=== PATIENT | female | born 1955 | race Caucasian/White ===

== ENCOUNTER 2025-04-25 23:48 | Inpatient (IN) | payer MEDICARE, OTHER, SELFPAY ==
[2025-04-25 20:30] VITALS: BP 111/61
[2025-04-25 21:04] LABS: Hematocrit 33.1 % (37.0-47.0); Hemoglobin 10.5 g/dL (12.0-16.0); Mean Corp Hgb Conc. 31.7 g/dL (33.0-37.0); Mean Corpuscular Volume 94.3 fL (81.0-99.0); Nucleated Red Blood Cells % 0 %; Platelet Count 461 10^3/uL (130-400); Red Cell Dist. Width 16.1 % (11.5-14.5)
[2025-04-25 21:14] LABS: ALT (SGPT) < 10 U/L (0-35); AST (SGOT) 19 U/L (14-36); Albumin 4.3 g/dl (3.5-5.0); Alkaline Phosphatase 72 U/L (38-126); Blood Urea Nitrogen 5 mg/dl (7-17); Calcium 9.7 mg/dl (8.4-10.2); Carbon Dioxide 28 mmol/L (22-30); Chloride 99 mmol/L (98-107); Glucose 111 mg/dl (70-99); Lipase 39 U/L (23-300); Potassium 4.3 mmol/L (3.5-5.1); Sodium 133 mmol/L (135-145); Total Protein 7.1 g/dl (6.3-8.2); eGFR > 60.00
[2025-04-25 21:38] VITALS: BMI 20.5
--- NOTE | 2025-04-25 21:42 | EDRN ---
Pt complains of sever pain in lower abdomen that starts with gas pain 'like something is eating me from the inside out.' Pt says she cannot lay down because that increases the pain. Pt started feeling better after percocet earlier today however
when that ran out, pain returned and pt noted temp of 102.6 at home. No medication taken for fever. Pt says diverticulitis pain is always present. Pt was in [facility] 03/29 and 04/06 or . Pt says she usually gets abx and follow up with
family doctor. April, pt was kept overnight and developed GI bleeding for a day. Pt had an angiogram done and says doctor could not find bleeding. No n/v/d. Pt has chronic constipation. Pain woke pt at 0300 this morning which is when she
takes linzess - pt did not take it this morning because she felt it would make her sicker. No BM today. No cough. Pt had intermittent chills normally, worse when pain increases. Pt getting intermittent shooting pains through abdomen at this
time. No urinary symptoms.
--- NOTE | 2025-04-25 21:43 | ED.GENMED ---
History of Present Illness
General
Chief Complaint: Abdominal Pain
Time Seen by Provider: 04/25/25 20:51
History of Present Illness
History of Present Illness:
69-year-old female with history of recurrent diverticulitis presents to the emergency department for evaluation of lower abdominal pain and fever that began today. She reports that she was admitted to [facility] earlier this month because of
acute diverticulitis with an associated GI bleed. She apparently underwent angiography and was then taken for an interventional radiology procedure however the procedure was terminated as no bleeding source was found according to the patient. She
was treated with a course of Cipro and Augmentin which she completed 9 days ago. Pain acutely began today, she denies nausea or vomiting, denies rectal bleeding
Review of Systems
Review of Systems
Allergies reviewed?: Yes
All Other Systems: ROS reviewed and negative except as documented in HPI and ROS
Phy Exam
Physical Exam
Physical Exam:
GEN: Well appearing, NAD, WDWN
HEENT: Oral mucosa moist, no scleral icterus
Cardiac: Regular rate and rhythm, no murmur
Lung: No respiratory distress, no tachypnea
Abdomen: Soft, diffuse tenderness to the lower abdomen with no rigidity, no upper abdominal tenderness
MSK: No gross deformity or injuries
Skin: Good color, no pallor or jaundice, no rashes
Neuro: AO x3, moves all extremities freely
Psych: Calm, cooperative
Course
Orders/Labs/Results
Orders:
Orders
04/25/25 20:43
Complete Blood Count/With Diff Urgent
Comprehensive Metabolic Panel Urgent
Lipase Urgent
04/25/25 21:16
CT Abd/Pel (IV only)-DH only Urgent
Comment:
Reason For Exam: LLQ pain
04/25/25 23:22
Piperacillin/Tazo 3.375 Gram [Zosyn] 3.375 gram in 50 ml IV NOW
04/25/25 23:48
Admit/Transfer Patient As Directed
Co-Sign Provider:
Level of Care: Inpatient admission
Assign to:: Medical/Surgical
Physician / Group: Guillermina
Diagnosis: Acute diverticulitis
Reason for Hospitalization: Recurrent acute diverticulitis
Expected length of stay greater than two midnights?: Yes
ELOS- Estimated Length of Stay in days: 2
I certify the patient meets the requirements for IP care: Yes
04/25/25 23:49
Code Status As Directed
Resuscitation Status: Full Code
PRN Pain Medication Management As Directed
May give lesser potent ordered pain med per pt: Yes
preference::
Protocol:: Medication orders for pain may be administered in a
manner that supports deferring to patient preference
when the pt is:
- Requesting an ordered lesser potent pain medication.
Least to most potent pain medications are defined
as: acetaminophen < NSAID < tramadol < opioids
(morphine, oxycodone, hydromorphone).
- Requesting a lesser dose of the same medication IF
ORDERED.
- Requesting a less intrusive route of administration
if both routes are prescribed by the provider (PO <
IV).
Abnormal Lab Results
04/25/25
20:43
RBC 3.51 L 10^6/uL
(4.20-5.40)
Hgb 10.5 L g/dL
(12.0-16.0)
Hct 33.1 L %
(37.0-47.0)
MCHC 31.7 L g/dL
(33.0-37.0)
RDW 16.1 H %
(11.5-14.5)
Plt Count 461 H 10^3/uL
(130-400)
Absolute Neuts (auto) 6.9 H 10^3/uL
(1.4-6.5)
Absolute Monos (auto) 1.3 H 10^3/uL
(0.1-0.6)
Monocytes % 12.2 H %
(1.7-9.3)
Sodium 133 L mmol/L
(135-145)
BUN 5 L mg/dl
(7-17)
Glucose 111 H mg/dl
(70-99)
04/25/25 20:43
04/25/25 20:43
Vital Signs
Initial and Last Documented VS:
Initial Vital Signs
Temp Pulse Resp BP Pulse Ox
98.6 F 104 20 111/61 97
04/25/25 20:30 04/25/25 20:30 04/25/25 20:30 04/25/25 20:30 04/25/25 20:30
Last Documented Vital Signs
Temp Pulse Resp BP Pulse Ox
98.2 F 75 14 98/64 95
04/25/25 21:57 04/25/25 21:57 04/25/25 21:57 04/25/25 21:57 04/25/25 21:57
MDM/Problems Addressed
MDM/Problems Addressed:
Due to the patient's recent hospitalization and antibiotic course she is at higher risk of multidrug-resistant pathogen, given her frequent recurrence of diverticulitis we will admit to the hospitalist service for IV antibiotics
*Pulse Oximetry
SaO2: 97
Oxygen Mode of Delivery: Room air
Patient hypoxic: no
*Critical Care Note
Total Time (30-74mins, 75-104mins- exclusive of procedures): Not Applicable
ED Attending Note
-
Portions of this chart may have been created with voice recognition software.� Occasional wrong word or��sound alike� substitutions may have occurred due to the inherent limitations of voice recognition software.
Discharge Plan
Departure
Patient Disposition: Admit
Date of Disposition: 04/25/25
Time of Disposition: 23:25
Admit to: Med/Surg
Presentation/result/management discussed w/ accepting MD/DO: Hospitalist
Discharge Problem:
Acute diverticulitis
Prescriptions:
No Action
polyethylene glycol 3350 [Miralax] 17 gram Powder In Packet
17 g PO DAILY PRN (Reason: if linzess does not work)
alprazolam 0.25 mg Tablet
0.25 mg PO BID
oxycodone-acetaminophen [Percocet] 10-325 mg Tablet
1 tab PO Q4H PRN (Reason: back pain)
acyclovir [Zovirax] 200 mg Capsule
200 mg PO BID
cholecalciferol (vitamin D3) [Vitamin D3] 50 mcg (2,000 unit) Capsule
50 mcg PO DAILY
Linzess 290 mcg Capsule
290 mcg PO DAILY
Referrals:
UNKNOWN - PT DOES,NOT KNOW [Family Provider]
Interventions
Interventions:
*Risk Screen - Suicide Last Done: 04/25/25 20:30
*General Assessment Last Done: 04/25/25 20:30
*Neglect/Abuse Screening Last Done: 04/25/25 20:30
*ED- Fall Risk Assessment Last Done: 04/25/25 21:53
*ED COVID-19 Vaccine History Last Done: 04/25/25 21:38
*ED Influenza Vaccine History Last Done: 04/25/25 21:38
GU-Qfdyrp-[id number] Assessment Last Done: 04/25/25 22:02
Discharge Date and Time
Print Language: FRENCH
[2025-04-25 21:57] VITALS: BP 98/64
[2025-04-25] MEDS: ZOSYN 50 IV (23:27)
--- NOTE | 2025-04-25 23:27 | HPS.HSE ---
Family Physician
-
Family Physician: NOT KNOW UNKNOWN - PT DOES
Chief Complaint
-
Abdominal pain
History of Present Illness
This is a 69-year-old female with past medical history significant for diverticulitis that presents to the emergency department with abdominal pain.
Patient reports history of diverticulitis that started around 2018. She had a sigmoid diverticulitis at that time and was treated with antibiotics. She was recommended surgery but patient reported that she did not want to undergo this procedure
given this is was forced to event. She was asymptomatic up until October of this year when she started having pain again and was found to have diverticulitis. Patient reports that she has been having diverticulitis off and on since then. The
diverticulitis was treated with antibiotics and she gets resolved and urinary tract infections, treated with antibiotics only to get recurrent diverticulitis again. She has never had abscess or perforation. She reported that she last was
hospitalized for diverticulitis in April which will be at 4th event since October. She was on Zosyn for about 5 days and completed outpatient course of Augmentin plus ciprofloxacin on April 16. Course was complicated by GI hemorrhage. Patient
says symptoms never completely resolved but she was tolerating the discomfort. She states that she has had decreased appetite and poor p.o. intake and intermittent constipation. However over the last few days she has had more severe Abdominal pain
not relieved by oral Percocets at home. She has not had any fevers or chills. She denies vomiting.
In the emergency department she was afebrile, blood pressure was 98/60 with a pulse of 75 and she was satting 95% on room air. Had a white count of 10.8, hemoglobin 10.5 and plate count of 460. Sodium was 183 electrolytes otherwise unremarkable
with normal BUN and creatinine. LFTs were normal lipase was normal. A CT of the abdomen pelvis showing acute sigmoid reticulitis without free air, or abscess. Distended gallbladder noted but no gallbladder wall thickening or pericholecystic fluid
and no sonographic Walden sign.
Medical History
Past Medical History
Past Medical History: Reports Other (Recurrent diverticulitis)
Past Surgical History: Reports Tonsilectomy and Other (Hemorrhoidectomy, splenectomy)
Social History
Tobacco: Non-smoker
Alcohol: None
Drug: None
Personal:
Living: With Family
Family History
Family History: Not pertinent
Allergies / Home Medications
Allergies reflects when Allergies were last updated in [facility].
Home Medications with original date entered in [facility]
Allergy/Medication List:
Allergies
Allergy/AdvReac Type Severity Reaction Status Date / Time
codeine Allergy Itching Verified 04/25/25 20:28
duloxetine Allergy Hives Verified 04/25/25 20:28
gabapentin Allergy Nausea Verified 04/25/25 20:28
omeprazole Allergy Unknown Verified 04/25/25 20:28
phenazopyridine Allergy Unknown Verified 04/25/25 20:28
Sulfa (Sulfonamide Allergy Nausea Verified 04/25/25 20:28
Antibiotics)
tramadol Allergy Unknown Verified 04/25/25 20:28
Home Medications
acyclovir 200 mg capsule 200 mg PO BID 04/25/25
alprazolam 0.25 mg tablet 0.25 mg PO BID 04/25/25
cholecalciferol (vitamin D3) 50 mcg (2,000 unit) capsule (Vitamin D3) 50 mcg PO DAILY 04/25/25
linaclotide 290 mcg capsule (Linzess) 290 mcg PO DAILY 04/25/25
oxycodone-acetaminophen 10 mg-325 mg tablet (Percocet) 1 tab PO Q4H PRN back pain 04/25/25
polyethylene glycol 3350 17 gram oral powder packet (Miralax) 17 g PO DAILY PRN if linzess does not work 04/25/25
Review of Systems
-
Constitutional: Reports No Symptoms
EENT: Reports No Symptoms
Respiratory: Reports No Symptoms
Cardiac: Reports No Symptoms
Abdomen/GI: Reports Abdominal Pain and Constipated
: Reports No Symptoms
Musculoskeletal: Reports No Symptoms
Skin: Reports No Symptoms
Neurological: Reports No Symptoms
Endocrine: Reports No Symptoms
Hematologic/Lymphatic: Reports No Symptoms
Psych: Reports No Symptoms
Physical Exam
Vital Signs
Vital Signs
Temp Pulse Resp BP Pulse Ox
98.2 F 75 14 98/64 95
04/25/25 21:57 04/25/25 21:57 04/25/25 21:57 04/25/25 21:57 04/25/25 21:57
Physical Exam
General: Well Developed, Well Nourished and No Apparent Distress
HEENT: NormoCephalic, Moist mucous membranes and Atraumatic
Respiratory: Clear
Cardiac: S1/S2 and Regular Rhythm; No Murmur or Rub
GI: Soft, Non Tender, Non Distended and Normal Bowel Sounds; No Organomegaly
Rectal: Deferred by Provider
Musculoskeletal: No Clubbing, No Cyanosis and No Edema
Skin: No Rash
Neuro: AO x 3 and Nonfocal/grossly intact
Laboratory Results
-
04/25/25 20:43
04/25/25 20:43
Laboratory Results
Total Bilirubin 0.7 mg/dl (0.2-1.3) 04/25/25 20:43
AST 19 U/L (14-36) 04/25/25 20:43
ALT < 10 U/L (0-35) 04/25/25 20:43
Alkaline Phosphatase 72 U/L (38-126) 04/25/25 20:43
Lipase 39 U/L (23-300) 04/25/25 20:43
Data Reviewed
-
CT Scan: Report Reviewed by me
Lab Data: Labs Reviewed by me
Old Records: Reviewed
Impression/Plan
-
IMPRESSION:
Patient is a 69-year-old female with past medical history of recurrent diverticulitis, she has been having persistent diverticulitis and on and off antibiotics since October of this year with 4 clear intervals requiring IV antibiotics since who presents
to the emergency department with worsening abdominal pain and constipation found to have acute diverticulitis. She is nontoxic-appearing. She is hemodynamically stable. There is no perforation or abscess on the CT scan. She last completed a
course of antibiotics in early April for sigmoid diverticulitis when she was admitted at [facility]. She was on Zosyn and was discharged on Augmentin plus Cipro.
PLAN:
Acute diverticulitis -multiple recurrences of acute diverticulitis, no perforation or abscess at this time.
- Admit to MedSurg
�Clear liquid diet for now
� Started on Zosyn
� Request records from [facility]
� Pain control, antiemetics and IV fluids
� At this point patient may have candidate for surgery and has been referred to Dr. Cheema in the past, consider colorectal consult in a.m. but no urgent consult at this time.
DVT prophylaxis�Lovenox subcu
CODE STATUS�full code
[2025-04-25 23:58] VITALS: BP 100/62
--- NOTE | 2025-04-26 00:51 | PTCARENOTE ---
Patient arrived to [facility] from ED. AAOx3, walked into room by herself, oriented to surroundings. Pt states no needs at this time, no c/o pain. Plan of care explained; assessment on going.
[2025-04-26 00:58] VITALS: BP 99/66; BMI 20.1
[2025-04-26] MEDS: LR 1000 IV ×2 (01:05→12:22)
[2025-04-26] MEDS: DILAUDID 0.5 MG IV ×2 (04:17→08:20)
[2025-04-26] MEDS: ZOSYN 50 IV ×4 (05:19→23:51)
[2025-04-26 06:13] LABS: Hematocrit 31.1 % (37.0-47.0); Hemoglobin 10.2 g/dL (12.0-16.0); Mean Corp Hgb Conc. 32.8 g/dL (33.0-37.0); Mean Corpuscular Volume 95.4 fL (81.0-99.0); Platelet Count 413 10^3/uL (130-400); Red Cell Dist. Width 16.0 % (11.5-14.5)
[2025-04-26 06:34] LABS: Blood Urea Nitrogen 5 mg/dl (7-17); Calcium 9.4 mg/dl (8.4-10.2); Carbon Dioxide 29 mmol/L (22-30); Chloride 103 mmol/L (98-107); Estimated Creatinine Clearance 62 ml/min; Glucose 96 mg/dl (70-99); Magnesium 2.0 mg/dl (1.6-2.3); Potassium 4.0 mmol/L (3.5-5.1); Sodium 134 mmol/L (135-145); eGFR > 60.00
[2025-04-26 07:05] VITALS: BP 109/60
[2025-04-26] MEDS: ZOVIRAX 200 MG PO ×2 (08:20→19:34)
[2025-04-26] MEDS: XANAX 0.25 MG PO ×2 (08:20→19:34)
--- NOTE | 2025-04-26 09:08 | CM ---
CM reviewed chart. Pt Iw/AMB and ADL's ambulating in room. AAOX4. Anticipated for home with no needs.
CM/SW will continue to follow to ensure a safe and timely dc.
--- NOTE | 2025-04-26 11:48 | W.PN.HOSP.TC ---
Today's Communication/Plan
-
maintain on abx
pain meds adjusted
await CRS evaluation
Assessment / Plan
Assessment / Plan
CT a/p
1. Findings consistent with acute sigmoid diverticulitis. No abscess or extraluminal air.
2. 8 mm stone within the right renal collecting system, without hydronephrosis.
3. 3 mm nodule at the right lung base. As per Fleischner Society recommendations, no further CT follow-up is required unless the patient is high risk for lung carcinoma, in which case a follow-up chest CT should be considered in approximately 12
months.
1. Recurrent sigmoid diverticulitis
- Patient reportedly have 4-5 episodes of recurrent diverticulitis in the last few months
- CT abdomen pelvis report as above
- Patient started on IV Zosyn
- Maintain on clear liquid diet
- Pain medication adjusted with increasing oral pain medication, IV Dilaudid for breakthrough pain
- Colorectal surgeon has been consulted for further help
2. Anemia -of unknown Verity
- Normocytic anemia with hemoglobin of 10, no baseline to compare with
- No reported black stools, monitor hemoglobin
- Follows with GI
3. History of constipation
- On Linzess, follows up with GI
4. Generalized anxiety disorder
- Maintained on Xanax 0.25 mg twice daily per home regimen
5. Hyponatremia
-Minimal monitor
Full code
Anticipated Discharge: 24 - 48 hours
Subjective/Interval History
-
Date of Service: April 26, 2025
Patient is tearful from the pain in her abdomen
Afebrile
No reported nausea or vomiting
Objective Data
-
Labs:
Laboratory Results
04/26/25
05:29
WBC 9.2
Hgb 10.2 L
Hct 31.1 L
Plt Count 413 H
Sodium 134 L
Potassium 4.0
Chloride 103
Carbon Dioxide 29
BUN 5 L
Creatinine 0.7
Glucose 96
Calcium 9.4
Vital Signs:
Vital Signs
Temp Pulse Resp BP Pulse Ox
98.3 F 92 16 109/60 96
04/26/25 07:05 04/26/25 07:05 04/26/25 07:05 04/26/25 07:05 04/26/25 07:05
Review of Systems
-
Respiratory: Reports No Symptoms
Cardiac: Reports No Symptoms
Abdomen/GI: Reports Abdominal Pain; Denies Nausea or Vomiting
Physical Exam
-
General: Negative Comfortable or Obese
HEENT: Negative Oxygen
GI: Soft, Normal Bowel Sounds and Tender (Lower quadrants); Negative Distended
[2025-04-26] MEDS: ROXICODONE 10 MG PO ×2 (12:22→17:34)
--- NOTE | 2025-04-26 13:39 | CON.CRS ---
Consultation
-
Date/Time Consultation Requested: 04/26/2025, 8:11
Date/Time Consultation Performed: 04/26/2025, 11:00
Requesting Provider: Toma Velásquez MD
Performing Provider: Adam Jernigan MD
Reason for Consultation: diverticulitis
Medical History
-
Chief Complaint: abdominal pain
History of Present Illness:
69yo female, with a history of diverticulitis, presents to [facility] complaining of abdominal pain. She had a history of sigmoid diverticulitis back in 2018 and was treated with outpatient antibiotics. At that time it was recommended she
undergo surgery but she declined. She did not have another attack up until October 2024 in which she with outpatient antibiotics. She was then hospitalized for diverticulitis on April 07 at [facility]. She was on Zosyn inpatient for 5 days.
She had a significant amount of rectal bleeding and was found to have an active hemorrhage around her splenic flexure. However, IR was not able to embolize the area. She received several blood transfusions. Her last colonoscopy was in 2017 by
[facility] and there were no findings. She was due in 2022. She states the pain in her abdomen is 'always there' and all of a sudden it will 'blow up'. She denies any nausea or vomiting. She denies currently any bloody stools. She does have
urinary pain when she urinates. Denies air in the urine or any brown flecks in the urine. Her mother of colon cancer. CT of the abdomen and pelvis shows acute sigmoid diverticulitis without free air or abscess. Her current white count is
9.2 and was 10.8 on admission. She remains afebrile. She was started on IV Zosyn in the ER.
Past Medical History
Past Medical History: Other (recurrent diverticulitis (4th attack))
Past Surgical History: Other (Hemorrhoidectomy, splenectomy)
Social History
Tobacco: Non-Smoker
Alcohol: None
Drug: None
Family History
Family History: Cancer (mother colon cancer)
Allergies / Home Medications
Allergy/AdvReac Type Severity Reaction Status Date / Time
codeine Allergy Itching Verified 04/25/25 20:28
duloxetine Allergy Hives Verified 04/25/25 20:28
gabapentin Allergy Nausea Verified 04/25/25 20:28
omeprazole Allergy Unknown Verified 04/25/25 20:28
phenazopyridine Allergy Unknown Verified 04/25/25 20:28
Sulfa (Sulfonamide Allergy Nausea Verified 04/25/25 20:28
Antibiotics)
tramadol Allergy Unknown Verified 04/25/25 20:28
�Medication �Instructions �Recorded �Confirmed �Type
acyclovir 200 mg capsule 200 mg PO BID belt shingles ppx 04/25/25 04/25/25 History
alprazolam 0.25 mg tablet 0.25 mg PO BID Mental 04/25/25 04/25/25 History
Health/Anxiety
cholecalciferol (vitamin D3) 50 50 mcg PO DAILY Supplement 04/25/25 04/25/25 History
mcg (2,000 unit) capsule (Vitamin
D3)
linaclotide 290 mcg capsule 290 mcg PO DAILY Gastrointestinal 04/25/25 04/25/25 History
(Linzess) Issue
oxycodone-acetaminophen 10 mg-325 1 tab PO Q4H PRN back pain 04/25/25 04/25/25 History
mg tablet (Percocet)
polyethylene glycol 3350 17 gram 17 g PO DAILY PRN if linzess does 04/25/25 04/25/25 History
oral powder packet (Miralax) not work
Review of Systems
-
History Source: Patient
Abdomen/GI: Abdominal Pain
A 10 point review of systems was completed, and was negative except as per HPI.
Physical Exam
Vital Signs
Temp 98.3 F 04/26/25 07:05
Pulse 92 04/26/25 07:05
Resp Rate 16 04/26/25 07:05
Blood pressure 109/60 04/26/25 07:05
SaO2 96 04/26/25 07:05
04/25/25 04/26/25 04/27/25
06:59 06:59 06:59
Actual Weight 51.437 kg
Body Mass Index (BMI) 20.1
Lab Results / Allergies
04/26/25 05:29
04/26/25 05:29
WBC 9.2 10^3/uL (4.8-10.8) 04/26/25 05:29
Hgb 10.2 g/dL (12.0-16.0) L 04/26/25 05:29
Hct 31.1 % (37.0-47.0) L 04/26/25 05:29
Plt Count 413 10^3/uL (130-400) H 04/26/25 05:29
Abs Immat Gran (auto) 0.0 10^3/uL (0-0.05) 04/25/25 20:43
Neutrophils % 63.7 % (42.2-75.2) 04/25/25 20:43
Allergy/AdvReac Type Severity Reaction Status Date / Time
codeine Allergy Itching Verified 04/25/25 20:28
duloxetine Allergy Hives Verified 04/25/25 20:28
gabapentin Allergy Nausea Verified 04/25/25 20:28
omeprazole Allergy Unknown Verified 04/25/25 20:28
phenazopyridine Allergy Unknown Verified 04/25/25 20:28
Sulfa (Sulfonamide Allergy Nausea Verified 04/25/25 20:28
Antibiotics)
tramadol Allergy Unknown Verified 04/25/25 20:28
Physical Exam
General: Well Developed, Well Nourished and No Apparent Distress
GI: Soft, Non Distended and Tender (mild RLQ, moderate in LLQ, mild bloating)
Skin: Warm and Dry
Neuro: AO x 3
Psych: Calm
Data Reviewed
-
CT Scan: Image Personally Visualized and interpreted, Report Reviewed by me and Discussed with Patient
Labs: Labs Reviewed by me, Discussed with Physician and Discussed with Patient
Old Records: Reviewed
Assessment / Plan
-
Assessment: 69-year-old female with multiple attacks of diverticulitis found to have likely smoldering sigmoid diverticulitis
Plan:
- No plans for surgery at this time unless she would worsens. Surgery would involve an open colectomy with colostomy.
- Continue IV fluids and clear liquids.
- Recommend ID consult due to smoldering diverticulitis. May require a PICC line and IV antibiotics as an outpatient.
- Will need eventual colonoscopy.
- Continue IV antibiotics
- Hopefully we can get her through this admission with IV antibiotics. Will plan to do an elective colectomy in the future.
[2025-04-26 15:00] VITALS: BP 100/59
[2025-04-26] MEDS: LOVENOX 40 MG SC (17:34)
--- NOTE | 2025-04-26 19:15 | PTCARENOTE ---
On rounds, patient noted to have full bag of Zosyn still hanging from previous shift not administered. Pharmacy notified.
[2025-04-26 19:47] LABS: C-Reactive Protein 22.20 mg/L (0.0-10.00)
[2025-04-26 23:00] VITALS: BP 99/51
[2025-04-27] MEDS: LR 1000 IV (02:25)
[2025-04-27] MEDS: ZOSYN 50 IV ×4 (05:25→23:05)
[2025-04-27 06:59] LABS: Hematocrit 31.2 % (37.0-47.0); Hemoglobin 10.2 g/dL (12.0-16.0); Mean Corp Hgb Conc. 32.7 g/dL (33.0-37.0); Mean Corpuscular Volume 95.7 fL (81.0-99.0); Platelet Count 406 10^3/uL (130-400); Red Cell Dist. Width 15.8 % (11.5-14.5)
[2025-04-27 07:00] VITALS: BP 107/62
[2025-04-27 07:28] LABS: Blood Urea Nitrogen 7 mg/dl (7-17); Calcium 9.5 mg/dl (8.4-10.2); Carbon Dioxide 26 mmol/L (22-30); Chloride 102 mmol/L (98-107); Estimated Creatinine Clearance 73 ml/min; Glucose 92 mg/dl (70-99); Potassium 3.8 mmol/L (3.5-5.1); Sodium 135 mmol/L (135-145); eGFR > 60.00
[2025-04-27 07:35] LABS: C-Reactive Protein 24.80 mg/L (0.0-10.00)
[2025-04-27] MEDS: XANAX 0.25 MG PO ×2 (08:22→19:44)
[2025-04-27] MEDS: ZOVIRAX 200 MG PO ×2 (08:22→19:44)
--- NOTE | 2025-04-27 10:02 | W.PN.CRS1 ---
Today's Communication / Plan
-
continue IVFS/clear liquids today
ID input
Assessment/Plan
-
Assessment: 69-year-old female with multiple attacks of diverticulitis found to have likely smoldering sigmoid diverticulitis
Vitals: normal
WBC: 6.0, Hgb 10.2
Plan:
- No plans for surgery at this time unless she would worsens. Surgery would involve an open colectomy with colostomy.
- Continue IV fluids and clear liquids today.
- Recommend ID consult due to smoldering diverticulitis. May require a PICC line and IV antibiotics as an outpatient.
- Will need eventual colonoscopy.
- Continue IV antibiotics
- Hopefully we can get her through this admission with IV antibiotics. Will plan to do an elective colectomy in the future.
- Lovenox for DVT prophylaxis
- Appreciate hospitalist
Subjective Data
Subjective Data
Date of Service: April 27, 2025
Patient states she has flatus and bowel movements. Her pain is about a 7/10. She is very hungry.
Objective Data
-
Vital Signs
Temp Pulse Resp BP Pulse Ox
98.4 F 75 16 107/62 96
04/27/25 07:00 04/27/25 07:00 04/27/25 07:00 04/27/25 07:00 04/27/25 07:00
Intake & Output
04/26/25 04/27/25 04/28/25
06:59 06:59 06:59
Intake Total 1350 / 1350
Balance 1350 / 1350
Intake:
Oral fluids 480 / 480
IV fluids (Total) 770 / 770
IV piggybacks 100 / 100
Other:
Number of approximated MODERATE 1
amounts of urine
Lab Results
04/27/25 06:45
04/27/25 06:45
Physical Exam
-
General: No Acute Distress and AOx3
Abdomen: Soft, Non Distended and Tender (LLQ)
Skin: Warm and Dry
--- NOTE | 2025-04-27 11:14 | CON.ID ---
Consultation
-
Date/Time Consultation Requested: April 26, 2025
Date/Time Consultation Performed: April 27, 2025
Requesting Provider: Dr. Patrick Acevedo
Performing Provider: Dr. Bell Pereira
Reason for Consultation: Diverticulitis
Chief Complaint / Past History
Chief Complaint
Abdominal pain
History of Present Illness
69-year-old female with history of splenectomy, diverticulitis who presented to the hospital April 25 with fourth episode of tach reticulitis since October 2024. She reports her first episode was in 2018 treated with antibiotic for which she could
not remember. She was fine until October 2024 when she had 2 episodes of diverticulitis for which she presented to [facility]. Initially diverticulitis in the sigmoid then the second 1 was on the right colon. March 30 she was hospitalized at [facility] again with diverticulitis. She did not develop bright red blood per rectum and has CT angiogram, no colonoscopy. Infectious disease put her on Cipro and Augmentin for which she completed on the . She reports symptom resolution while
on oral antibiotics. She was not able to tolerate metronidazole. On April 25 she again developed left lower quadrant abdominal pain that was severe. No diarrhea. No fevers or chills. In ED CAT scan showed sigmoid diverticulitis without
abscess or perforation. She is currently on Zosyn. She reports the abdominal pain has improved. She reports she could not tolerate metronidazole.
Past History
Additional Past Medical History:
Recurrent diverticulitis
Splenectomy due to trauma ()
IBS
Nephrolithiasis
Chronic back pain
Henorrhoidectomy
Allergy History:
codeine Allergy (Verified 04/25/25 20:28)
Itching
duloxetine Allergy (Verified 04/25/25 20:28)
Hives
gabapentin Allergy (Verified 04/25/25 20:28)
Nausea
omeprazole Allergy (Verified 04/25/25 20:28)
Unknown
phenazopyridine Allergy (Verified 04/25/25 20:28)
Unknown
Sulfa (Sulfonamide Antibiotics) Allergy (Verified 04/25/25 20:28)
Nausea
tramadol Allergy (Verified 04/25/25 20:28)
Unknown
Medications Reviewed: Yes
Current Antibiotics:
Zosyn
Social History
Tobacco: Non-Smoker
Alcohol: None
Drug: None
Personal:
Family History
Family History: Not Pertinent
Review of Systems
Review of Systems
General: Change in Appetite; Negative Fever or Chills
HEENT: Negative Sinus Problems or Headache
Cardiovascular: Negative Chest Pain or Dyspnea
Respiratory: Negative Dyspnea
Gasteroenterology: Negative Nausea, Vomiting or Diarrhea
Genital / Urological: Negative Dysuria or Flank Pain
Endocrine: Weakness
All systems: All other systems were reviewed and were negative
Vital Signs
Temp Pulse Resp BP Pulse Ox
98.4 F 75 16 107/62 96
04/27/25 07:00 04/27/25 07:00 04/27/25 07:00 04/27/25 07:00 04/27/25 07:00
Physical Exam
Physical Exam
Constitutional: No Acute Distress and Comfortable
Eyes: No Conjunctival Hemorrhage and Sclera Anicteric
Cardiovascular: Regular Rate and S1/S2
Pulmonary: Clear
Gastrointestinal: Soft, Tender (mild tender LLQ) and Non Distended
Extremities: Negative Edema
Neurological: AO x 3
Lab / Diagnostic Study Results
04/27/25 06:45
04/27/25 06:45
Abs Immat Gran (auto) 0.0 10^3/uL (0-0.05) 04/25/25 20:43
Absolute Neuts (auto) 6.9 10^3/uL (1.4-6.5) H 04/25/25 20:43
Absolute Lymphs (auto) 2.4 10^3/uL (1.2-3.4) 04/25/25 20:43
Absolute Monos (auto) 1.3 10^3/uL (0.1-0.6) H 04/25/25 20:43
Absolute Basos (auto) 0.1 10^3/uL (0-0.2) 04/25/25 20:43
Immature Gran % 0.4 % (0-0.5) 04/25/25 20:43
Neutrophils % 63.7 % (42.2-75.2) 04/25/25 20:43
Lymphocytes % 22.1 % (20.5-51.1) 04/25/25 20:43
Monocytes % 12.2 % (1.7-9.3) H 04/25/25 20:43
Eosinophils % 1.1 % (0-6) 04/25/25 20:43
Basophils % 0.5 % (0-2) 04/25/25 20:43
C-Reactive Protein 24.80 mg/L (0.0-10.00) H 04/27/25 06:45
Microbiology Results
04/25/25 CT a/p: Findings consistent with acute sigmoid diverticulitis. No abscess or extraluminal air
Assessment / Plan
# Recurrent diverticulitis without abscess
# Intolerance to sulfa, metronidazole
- Improving on Zosyn
- At time of dc, recommend moxifloxacin 400mg po qd x 3 weeks then amanda with Augmentin 875mg po bid as bridge to surgery.
Discussed potential side effects of termite treater abx.
--- NOTE | 2025-04-27 13:48 | CM ---
Diverticulitis. No plans for surgery (open colectomy with colostomy) at this time unless condition worsens. Start clear liquid diet. IV/Zosyn. May need IV/AB at discharge. Discharge POC: Possible need for IV/AB.
--- NOTE | 2025-04-27 14:20 | W.PN.HOSP.TC ---
Today's Communication/Plan
-
maintain on abx
await ID input
continue other care
Assessment / Plan
Assessment / Plan
CT a/p
1. Findings consistent with acute sigmoid diverticulitis. No abscess or extraluminal air.
2. 8 mm stone within the right renal collecting system, without hydronephrosis.
3. 3 mm nodule at the right lung base. As per Fleischner Society recommendations, no further CT follow-up is required unless the patient is high risk for lung carcinoma, in which case a follow-up chest CT should be considered in approximately 12
months.
1. Recurrent sigmoid diverticulitis
- Patient reportedly have 4-5 episodes of recurrent diverticulitis in the last few months
- CT abdomen pelvis report as above
- Patient is maintained on IV Zosyn -ID involved in care for possible need of long-term IV antibiotic for bridging patient back to termite helper surgery.
- Maintain on clear liquid diet
- Continue current pain medication
- Colorectal surgery evaluation reviewed, patient would benefit with an outpatient elective surgery after improvement of current diverticulitis flareup
2. Anemia -of unknown Verity
- Normocytic anemia with hemoglobin of 10, no baseline to compare with
- No reported black stools, monitor hemoglobin
- Follows with GI
3. History of constipation
- On Linzess, follows up with GI
4. Generalized anxiety disorder
- Maintained on Xanax 0.25 mg twice daily per home regimen
5. Hyponatremia
-Minimal monitor
Full code
Discussed with Colorectal Surgeon.
Anticipated Discharge: 24 - 48 hours
Subjective/Interval History
-
Date of Service: April 27, 2025
No new issues overnight
Abdominal pain is better
Denies any nausea vomit
Objective Data
-
Labs:
Laboratory Results
04/27/25
06:45
WBC 6.0
Hgb 10.2 L
Hct 31.2 L
Plt Count 406 H
Sodium 135
Potassium 3.8
Chloride 102
Carbon Dioxide 26
BUN 7
Creatinine 0.6
Glucose 92
Calcium 9.5
Vital Signs:
Vital Signs
Temp Pulse Resp BP Pulse Ox
98.4 F 75 16 107/62 96
04/27/25 07:00 04/27/25 07:00 04/27/25 07:00 04/27/25 07:00 04/27/25 11:59
I&O
04/26/25 04/27/25 04/28/25
06:59 06:59 06:59
Intake Total 1350 / 1350 50 / 50
Balance 1350 / 1350 50 / 50
Review of Systems
-
Respiratory: Reports No Symptoms
Cardiac: Reports No Symptoms
Abdomen/GI: Denies Abdominal Pain, Nausea or Vomiting
Physical Exam
-
General: Negative Comfortable or Obese
HEENT: Negative Oxygen
GI: Soft, Normal Bowel Sounds and Tender (Lower quadrants); Negative Distended
Neuro: Awake, Alert, Oriented and No Motor Deficits
[2025-04-27 15:00] VITALS: BP 118/63
[2025-04-27] MEDS: LOVENOX 40 MG SC (17:21)
[2025-04-27 23:06] VITALS: BP 116/66
[2025-04-28] MEDS: ZOSYN 50 IV ×4 (05:13→23:42)
[2025-04-28 07:10] VITALS: BP 118/69
[2025-04-28 07:22] LABS: Hematocrit 34.2 % (37.0-47.0); Hemoglobin 11.3 g/dL (12.0-16.0); Mean Corp Hgb Conc. 33.0 g/dL (33.0-37.0); Mean Corpuscular Volume 94.7 fL (81.0-99.0); Platelet Count 439 10^3/uL (130-400); Red Cell Dist. Width 15.4 % (11.5-14.5)
[2025-04-28 08:17] LABS: C-Reactive Protein 12.30 mg/L (0.0-10.00)
[2025-04-28] MEDS: ZOVIRAX 200 MG PO ×2 (08:25→19:39)
[2025-04-28] MEDS: XANAX 0.25 MG PO ×2 (08:25→19:39)
--- NOTE | 2025-04-28 10:19 | W.PN.ID1 ---
Date of Service
Date of Service: April 28, 2025
Today's Communication
Continue Zosyn.
Assessment / Plan
# Recurrent diverticulitis without abscess
# Intolerance to sulfa, metronidazole
- Improving on Zosyn
- At time of dc, recommend moxifloxacin 400mg po qd x 3 weeks then amanda with Augmentin 875mg po bid as bridge to surgery.
Discussed potential side effects of filler leaf cutter long abx.
Chief Complaint
-: Other (Diverticulitis)
Subjective / Review of Systems
Abd pain resolving.
Vital Signs / Physical Exam
Vital Signs
Vital Signs
Temp Pulse Resp BP Pulse Ox
97.9 F 70 16 118/69 98
04/28/25 07:10 04/28/25 07:10 04/28/25 07:10 04/28/25 07:10 04/28/25 07:10
Physical Exam
Constitutional: No Acute Distress
Cardiovascular: Regular Rate and S1/S2
Pulmonary: Clear
Gastrointestinal: Soft, Tender (minimal LLQ ) and Non Distended
Extremities: Negative Edema
Neurological: AO x 3
Objective Data
Lab Data
Lab Results
04/28/25 06:52
04/28/25 08:17
Estimated Creat Clear Cancelled 04/28/25 08:17
Total Bilirubin 0.7 mg/dl (0.2-1.3) 04/25/25 20:43
AST 19 U/L (14-36) 04/25/25 20:43
ALT < 10 U/L (0-35) 04/25/25 20:43
Alkaline Phosphatase 72 U/L (38-126) 04/25/25 20:43
C-Reactive Protein 12.30 mg/L (0.0-10.00) H 04/28/25 06:52
Most recent labs reviewed.
04/25/25 CT a/p: Findings consistent with acute sigmoid diverticulitis. No abscess or extraluminal air
[2025-04-28 10:27] LABS: Carbon Dioxide 26 mmol/L (22-30)
[2025-04-28 10:28] LABS: Blood Urea Nitrogen 4 mg/dl (7-17); Calcium 10.1 mg/dl (8.4-10.2); Chloride 103 mmol/L (98-107); Estimated Creatinine Clearance 62 ml/min; Glucose 95 mg/dl (70-99); Potassium 5.0 mmol/L (3.5-5.1); Sodium 138 mmol/L (135-145); eGFR > 60.00
--- NOTE | 2025-04-28 11:00 | W.PN.CRS1 ---
Today's Communication / Plan
-
advance diet
Assessment/Plan
-
Assessment: 69-year-old female with multiple attacks of diverticulitis found to have likely smoldering sigmoid diverticulitis
Vitals: normal
WBC: 4.0, Hgb 11.3
Plan:
- No plans for surgery at this time unless she would worsens. Surgery would involve an open colectomy with colostomy.
- Advance to full liquids, low residue for dinner if tolerates
- Will need eventual colonoscopy.
- Continue IV antibiotics per ID
- Hopefully we can get her through this admission with IV antibiotics. Will plan to do an elective colectomy in the future.
- Lovenox for DVT prophylaxis
- Appreciate hospitalist
- Anticipate d/c as soon as tomorrow
Subjective Data
Subjective Data
Date of Service: April 28, 2025
Patient states she has minimal pain today. She has flatus. She is hungry. Tolerating clears no difficulty.
Objective Data
-
Vital Signs
Temp Pulse Resp BP Pulse Ox
97.9 F 70 16 118/69 98
04/28/25 07:10 04/28/25 07:10 04/28/25 07:10 04/28/25 07:10 04/28/25 07:10
Intake & Output
04/27/25 04/28/25 04/29/25
06:59 06:59 06:59
Intake Total 1350 / 1350 2145 / 2145
Balance 1350 / 1350 2145 / 2145
Intake:
Oral fluids 480 / 480 1995 / 1995
IV fluids (Total) 770 / 770
IV piggybacks 100 / 100 150 / 150
Other:
Number of approximated MODERATE 1 2
amounts of urine
Lab Results
04/28/25 06:52
04/28/25 08:17
Physical Exam
-
General: No Acute Distress and AOx3
Abdomen: Soft, Non Distended and Tender (LLQ- mild)
Skin: Warm and Dry
--- NOTE | 2025-04-28 13:13 | W.PN.HOSP.TC ---
Today's Communication/Plan
-
see note
possible d/c early tomorrow
Assessment / Plan
Assessment / Plan
CT a/p
1. Findings consistent with acute sigmoid diverticulitis. No abscess or extraluminal air.
2. 8 mm stone within the right renal collecting system, without hydronephrosis.
3. 3 mm nodule at the right lung base. As per Fleischner Society recommendations, no further CT follow-up is required unless the patient is high risk for lung carcinoma, in which case a follow-up chest CT should be considered in approximately 12
months.
1. Recurrent sigmoid diverticulitis
- Patient reportedly have 4-5 episodes of recurrent diverticulitis in the last few months
- CT abdomen pelvis report as above
- Continue current pain medication
- Colorectal surgery evaluation reviewed, patient would benefit with an outpatient elective surgery after improvement of current diverticulitis flareup
- Patient diet advanced to as tolerated
- ID recommended patient to be transition to short course of moxifloxacin followed by Augmentin as a bridge to surgery
2. Anemia -of unknown Verity
- Normocytic anemia with hemoglobin of 10, no baseline to compare with
- No reported black stools, monitor hemoglobin
- Follows with GI
3. History of constipation
- On Linzess, follows up with GI
4. Generalized anxiety disorder
- Maintained on Xanax 0.25 mg twice daily per home regimen
5. Hyponatremia
-Minimal monitor
Full code
Anticipated Discharge: Within 24 hours
Subjective/Interval History
-
Date of Service: April 28, 2025
Feeling better
denies of having any excessive abdominal pain
Some reported loose stools
Afebrile
No nausea vomiting
Objective Data
-
Labs:
Laboratory Results
04/28/25 04/28/25 04/28/25
06:52 06:52 06:52
WBC 4.0 L
Hgb 11.3 L
Hct 34.2 L
Plt Count 439 H
Sodium Cancelled 138
Potassium Cancelled 5.0 D
Chloride Cancelled
Carbon Dioxide
BUN
Creatinine
Glucose
Calcium
04/28/25 04/28/25 04/28/25
06:52 06:52 06:52
WBC
Hgb
Hct
Plt Count
Sodium
Potassium
Chloride 103
Carbon Dioxide Cancelled 26
BUN Cancelled 4 L
Creatinine Cancelled
Glucose
Calcium
04/28/25 04/28/25 04/28/25
06:52 06:52 06:52
WBC
Hgb
Hct
Plt Count
Sodium
Potassium
Chloride
Carbon Dioxide
BUN
Creatinine 0.7
Glucose Cancelled 95
Calcium Cancelled 10.1
04/28/25
08:17
WBC
Hgb
Hct
Plt Count
Sodium Cancelled
Potassium Cancelled
Chloride Cancelled
Carbon Dioxide Cancelled
BUN Cancelled
Creatinine Cancelled
Glucose Cancelled
Calcium Cancelled
Vital Signs:
Vital Signs
Temp Pulse Resp BP Pulse Ox
97.9 F 70 16 118/69 98
04/28/25 07:10 04/28/25 07:10 04/28/25 07:10 04/28/25 07:10 04/28/25 11:14
I&O
04/27/25 04/28/25 04/29/25
06:59 06:59 06:59
Intake Total 1350 / 1350 2146 / 2146 230 / 230
Balance 1350 / 1350 2145 / 2145 230 / 230
Review of Systems
-
Respiratory: Reports No Symptoms
Cardiac: Reports No Symptoms
Abdomen/GI: Reports No Symptoms
Physical Exam
-
General: Negative Respiratory Distress
HEENT: Negative Oxygen
Neuro: Awake, Alert and Oriented
Psych: Calm
[2025-04-28 15:15] VITALS: BP 112/63
--- NOTE | 2025-04-28 15:45 | CM ---
F/U: IAN Michelle confirmed with the Hospitalist that patient does not have a colostomy and will not need any Home VN/PT. PLAN: Discharge home when ready.
[2025-04-28] MEDS: LOVENOX 40 MG SC (17:22)
[2025-04-28 23:27] VITALS: BP 102/58
[2025-04-29] MEDS: ZOSYN 50 IV ×2 (05:21→12:08)
[2025-04-29 07:05] VITALS: BP 110/69
[2025-04-29 07:06] LABS: Hematocrit 34.3 % (37.0-47.0); Hemoglobin 11.0 g/dL (12.0-16.0); Mean Corp Hgb Conc. 32.1 g/dL (33.0-37.0); Mean Corpuscular Volume 95.3 fL (81.0-99.0); Platelet Count 439 10^3/uL (130-400); Red Cell Dist. Width 15.6 % (11.5-14.5)
[2025-04-29 07:25] LABS: C-Reactive Protein 7.60 mg/L (0.0-10.00)
[2025-04-29 07:29] LABS: Blood Urea Nitrogen 2 mg/dl (7-17); Calcium 9.6 mg/dl (8.4-10.2); Carbon Dioxide 29 mmol/L (22-30); Chloride 104 mmol/L (98-107); Estimated Creatinine Clearance 62 ml/min; Glucose 101 mg/dl (70-99); Potassium 3.7 mmol/L (3.5-5.1); Sodium 140 mmol/L (135-145); eGFR > 60.00
--- NOTE | 2025-04-29 08:40 | W.PN.CRS1 ---
Today's Communication / Plan
-
Ok for discharge from surgical standpoint
Surgery to be scheduled as an outpatient. Contact information provided.
Assessment/Plan
-
Assessment: 69-year-old female with multiple attacks of diverticulitis found to have likely smoldering sigmoid diverticulitis
Vitals: normal
WBC: normal
Plan:
- Ok for discharge
- Will need eventual colonoscopy. Last scope in [address] Hammond, normal. No history of polyps on previous colonscopies. Her mother had colon cancer in her 60's.
- I reviewed diet, meds and follow-up. Surgery to be scheduled.
Subjective Data
Subjective Data
Date of Service: April 29, 2025
She feels better and wants to go home. She is tolerating a low residue diet and moving her bowels. No narcotics taken since 04/26.
Objective Data
-
Vital Signs
Temp Pulse Resp BP Pulse Ox
98.1 F 76 16 110/69 97
04/29/25 07:05 04/29/25 07:05 04/29/25 07:05 04/29/25 07:05 04/29/25 07:05
Intake & Output
04/28/25 04/29/25 04/30/25
06:59 06:59 06:59
Intake Total 2145 1490 / 1490 480 / 480
Balance 2145 / 2145 1490 / 1490 480 / 480
Intake:
Oral fluids 1995 / 1995 1440 / 1440 480 / 480
IV piggybacks 150 / 150 50 / 50
Other:
How many times incontinent 3
MODERATE amount urine
Number of approximated MODERATE 2 3
amounts of urine
Number of approximated LARGE 1
amounts of urine
Lab Results
04/29/25 06:10
04/29/25 06:10
Physical Exam
-
General: No Acute Distress
Abdomen: Soft, Non Distended and Non Tender
Extremities: No Calf Tenderness
[2025-04-29] MEDS: ZOVIRAX 200 MG PO (08:44)
[2025-04-29] MEDS: XANAX 0.25 MG PO (08:44)
--- NOTE | 2025-04-29 11:00 | W.PN.ID1 ---
Date of Service
Date of Service: April 29, 2025
Today's Communication
At time of dc, recommend moxifloxacin 400mg po qd x 3 weeks then amanda with Augmentin 875mg po bid as bridge to surgery.
Assessment / Plan
# Recurrent diverticulitis without abscess. 4th episode since 10/2024.
# Intolerance to sulfa, metronidazole
- Improving on Zosyn
- At time of dc, recommend moxifloxacin 400mg po qd x 3 weeks then amanda with Augmentin 875mg po bid as bridge to surgery.
Chief Complaint
-: Other (Diverticulitis)
Subjective / Review of Systems
Hoping to go home today.
Vital Signs / Physical Exam
Vital Signs
Vital Signs
Temp Pulse Resp BP Pulse Ox
98.1 F 76 16 110/69 97
04/29/25 07:05 04/29/25 07:05 04/29/25 07:05 04/29/25 07:05 04/29/25 07:05
Physical Exam
Constitutional: No Acute Distress
Cardiovascular: Regular Rate and S1/S2
Pulmonary: Clear
Gastrointestinal: Soft and Non Distended; Negative Tender
Extremities: Negative Edema
Neurological: AO x 3
Objective Data
Lab Data
Lab Results
04/29/25 06:10
04/29/25 06:10
Estimated Creat Clear 62 ml/min 04/29/25 06:10
Total Bilirubin 0.7 mg/dl (0.2-1.3) 04/25/25 20:43
AST 19 U/L (14-36) 04/25/25 20:43
ALT < 10 U/L (0-35) 04/25/25 20:43
Alkaline Phosphatase 72 U/L (38-126) 04/25/25 20:43
C-Reactive Protein 7.60 mg/L (0.0-10.00) 04/29/25 06:10
Most recent labs reviewed.
04/25/25 CT a/p: Findings consistent with acute sigmoid diverticulitis. No abscess or extraluminal air
--- NOTE | 2025-04-29 11:26 | W.DCSUMMARY ---
Discharge Summary
Discharge Data
Date of Admission: 04/25/25
Date of Discharge: 04/29/25
-
Pending Results: No
Hospital Course
Discharging Physician : Dr Patrick Acevedo
Disposition : To home
Primary care physician : Unknown
Principal Discharge diagnosis :
Recurrent sigmoid diverticulitis
Hyponatremia
Chronic Discharge diagnosis :
Chronic anemia
History of constipation
Generalized anxiety disorder
Physical examination:
General: Comfortable, aox3
HEENT: Negative Oxygen
GI: Soft, Normal Bowel Sounds, non tender
Neuro: Awake, Alert, Oriented and No Motor Deficits
Hospital Course :
Patient is a 69-year-old female with above-mentioned past medical history came to ER with new onset of lower abdominal discomfort. Patient have been dealing with on and off episodes of diverticulitis this year and had the fourth episode in
April. Patient never had any complicating factors of perforation/abscess formation for diverticulitis. After treatment with antibiotics in April patient did not had complete resolution of symptoms and started having worsening abdominal pain
before presenting to the ER. In ER repeat CT scan showing patient having sigmoid diverticulitis. Colorectal surgeon was involved in care who evaluated patient and recommended course of IV antibiotic and infectious disease evaluation for patient.
Plan for patient to finish a course of antibiotics for acute diverticulitis with bridging patient to outpatient elective surgery. Patient had improvement in symptoms and neck 74 hours. At discharge patient was provided 3 weeks of moxifloxacin
course followed by Augmentin till surgery. Patient is planned to be seen by colorectal surgeon as a follow-up in office as well.
Important imaging findings :
None
Procedure findings :
None
Discharge Plan
-
Patient Disposition: Home (Routine Discharge)
Discharge Diagnosis/Procedures: Recurrent sigmoid diverticulitis
Condition: Fair
Diet: Other diet
Additional Diets: Low residue diet
Activity: As tolerated
Driving Restrictions: As prior to admission
Bathing Restrictions: OK to Shower
Instructions: Low-fiber diet
Referrals:
Dalton Best MD [Active, ColoRectal] - in two to three weeks
UNKNOWN - PT DOES,NOT KNOW [Family Provider]
Bell Pereira MD [Active, Infectious Diseases] - As needed
Prescriptions:
New
moxifloxacin 400 mg tablet
400 mg PO DAILY Qty: 21 0RF
amoxicillin-pot clavulanate 875-125 mg tablet
1 tab PO BID Qty: 60 1RF
Rx Instructions:
Start taking once finished with Moxifloxacin course
Visbiome 112.5 billion cell capsule
1 cap PO DAILY Qty: 30 1RF
Continued
polyethylene glycol 3350 [Miralax] 17 gram Powder In Packet
17 g PO DAILY PRN (Reason: if linzess does not work)
alprazolam 0.25 mg Tablet
0.25 mg PO BID
oxycodone-acetaminophen [Percocet] 10-325 mg Tablet
1 tab PO Q4H PRN (Reason: back pain)
acyclovir 200 mg Capsule
200 mg PO BID
cholecalciferol (vitamin D3) [Vitamin D3] 50 mcg (2,000 unit) Capsule
50 mcg PO DAILY
Linzess 290 mcg Capsule
290 mcg PO DAILY
Discharge Orders:
Discharge Patient (As Directed); Ordered 04/29/25
Ordered By: Patrick Acevedo
Discharge Date and Time
Print Language: BELARUSIAN
[2025-04-29 13:35] VITALS: BP 100/71
== END 2025-04-29 14:01 | disposition home or self-care (01) | DRG 392 ==
LOC: 2 SOUTH 23:48
PROVIDERS: ADMITTING PHYSICIAN Internal Medicine; ATTENDING PHYSICIAN Hospitalist; CONSULT PHYSICIAN Internal Medicine Infectious Disease; CONSULT PHYSICIAN Surgery; EMERGENCY PHYSICIAN Student in an Organized Health Care Education/Training Program
DX: K57.32 Diverticulitis of large intestine without perforation or abscess without bleeding (principal); E87.1 Hypo-osmolality and hyponatremia
CPT/HCPCS: 74177; 80048; 80053; 83690; 83735; 85025; 85027; 86140; 96365; 99284; Q9967